=== PATIENT | female | born 1990 | race Caucasian/White ===

== ENCOUNTER 2017-04-29 16:26 | Emergency (ER) | payer SELFPAY ==
[~2017-04-29] VITALS: Ht 167.6 cm; Wt 74.1 kg
[2017-04-29 16:32] VITALS: Ht 167.6 cm; Wt 74.1 kg
[2017-04-29] MEDS ORDERED: NAPR-260 PO (16:49)
[2017-04-29] MEDS ORDERED: AMOX500C2 PO (16:49)
--- NOTE | 2017-04-29 17:15 | ERD ---
ER Documentation Chief Complaint Chief Complaint dental pain & jaw swelling x1 day HPI Patient is an otherwise healthy 26-year-old female presenting to the emergency department with complaints of dental pain to the right upper incisor area with radiation to her right maxillary area which she first noticed yesterday. Symptoms are worsening and constant. She denies fevers or chills. ROS All systems reviewed and are negative except as per history of present illness. Medications Home Meds Active Scripts Naproxen* (Naprosyn*) 500 Mg Tablet, 500 MG PO BID Y for PAIN AND/OR INFLAMMATION, #30 TAB Prov:AB MILLER PA-C 04/29/17 Amoxicillin* (Amoxicillin*) 500 Mg Cap, 500 MG PO TID for 7 Days, #21 CAP Prov:AB MILLER PA-C 04/29/17 Allergies Allergies: Coded Allergies: No Known Allergy (Unverified , 04/29/17) PMhx/Soc History of Surgery: No Anesthesia Reaction: No Hx Neurological Disorder: No Hx Respiratory Disorders: No Hx Cardiac Disorders: No Hx Psychiatric Problems: No Hx Miscellaneous Medical Probl: No Hx Alcohol Use: No Hx Substance Use: No Hx Tobacco Use: No Smoking Status: Never smoker Physical Exam Vitals Vital Signs Date Time Temp Pulse Resp B/P Pulse Ox O2 Delivery O2 Flow Rate FiO2 04/29/17 16:32 98.7 75 18 148/92 100 Physical Exam Const: Nontoxic, well-appearing female in no acute distress. Head: Atraumatic Eyes: Normal Conjunctiva ENT: Normal External Ears, Nose and Mouth. There is some tenderness palpation of the right maxillary area. Dentition looks normal. No obvious signs of dental abscess or gingivitis. Ext: No cyanosis, or edema Neur: Awake and alert Psych: Normal Mood and Affect Procedures/MDM Patient is a pleasant 26-year-old female presenting to the emergency department with complaints of dental pain. No obvious signs of dental abscess, cellulitis , osteomyelitis, or other emergencies. Patient is stable and appropriate for outpatient management with a prescription for amoxicillin and naproxen. This may be a very early dental abscess, however I do not feel the patient requires further workup or treatment at this time in the department. No evidence of life -threatening pathology at time of discharge. Pt/family in agreement with discharge plan/diagnosis. Pt/family advised to return immediately with any new or worsening symptoms. Follow-up with primary care physician within the next 1- 2 days. Departure Diagnosis: Primary Impression: Tooth disease Condition: Fair Patient Instructions: Dental Pain Ref[facility] Usted se villalobos hecho un examen mdico de control que le indica que no est en nathan condicin que requiera tratamiento urgente en el Departamento de Emergencia. Un estudio ms profundo y el tratamiento de eduardo condicin pueden esperar sin ningn riesgo hasta que usted sea atendida/o en el consultorio de eduardo mdico o nathan cl esau. Es responsabilidad suya arreglar nathan becky para el seguimiento del stuart. MANEJO DE CONDICIONES NO URGENTES EN EL FUTURO 1) Si usted tiene un mdico de atencin primaria: Usted debera llamar a eduardo mdico de atencin primaria antes de venir al departamento de emergencia. Despus de las horas de consultorio, eduardo doctor o eduardo asociado/a est disponible por telfono. El mdico o enfermero de kym en el servicio telefnico puede asesorarle por enrike medio para atender el problema, o stuart contrario se puede programar nathan becky. 2) Si usted no tiene un mdico de atencin primaria: Llame al mdico o clnica de referencia que aparece abajo belkis las horas de consultorio para hacer nathan becky para que le vean. CLINICAS: [facility] [phone] [facility] [phone] [facility] [phone] [address] [place] [phone] [place] [phone] [phone] [facility] ([facility] walk in clinic) Additional Instructions: Llame al doctor MAANA y felicitas nathan BECKY PARA DENTRO DE 1-2 VERNON.Dgale a la secretaria que nosotros le instruimos hacer esta becky.Avise o llame si eduardo condicin se empeora antes de la becky. Regresa aqui si peor o no mejor. AB MILLER PA-C Apr 29, 2017 17:15
== END 2017-04-29 17:28 | disposition home or self-care (01) ==
LOC: EDBD 16:26 → FTE 16:26
DX: K08.89 Other specified disorders of teeth and supporting structures (principal)
CPT/HCPCS: 99283